=== PATIENT | female | born 1945 | race African-American/Black ===

== ENCOUNTER 2017-06-05 16:22 | Inpatient (IN) | payer MEDICARE, OTHER ==
[~2017-06-05] VITALS: Ht 160 cm; Wt 97.8 kg
[2017-06-05] VITALS (30 sets, daily range): BP systolic 159–188; BP diastolic 66–90; PULSE 71–77; TEMP 97.7–97.9; O2SAT 97–99
[~2017-06-05 16:22] MED LIST: ASPIRIN E.C. 8181 MG PO; CALCIUM 500 + D1 TA1 PO; CELEBREX 200MG200 MG PO; COREG 25MG25 MG/TAB PO; FOSAMAX 35MG35 MG PO; GLUCOPHAGE1000 MG PO; HYZAAR 25 MG-101 TAB PO; JANUVIA50 MG PO; NASONEX SPRAY17 GM NS; NEXIUM 40MG40 MG PO; NORVASC 10MG10 MG PO; PREMARIN VAG42.5 GM VG; SYNTHROID0.05 MG/TA PO; TEKTURNA150 MG PO; TYLENOL 325MG325 MG PO; TYLENOL W/COD1 UDTAB PO; VITAMIN D32000 I1 PO; ZOCOR 40MG40 MG PO
[2017-06-05] MEDS ORDERED: FLEXERIL 1010 MG/TAB PO (16:59)
[2017-06-05] MEDS ORDERED: COZAAR100 MG PO (17:00)
[2017-06-05] MEDS ORDERED: JANUMXR1000-50 PO (17:00)
[2017-06-05] MEDS ORDERED: REFRESH TEARS 330 ML OP (17:01)
[2017-06-06] VITALS (270 sets, daily range): BP systolic 135–186; BP diastolic 48–74; PULSE 61–101; TEMP 97–98.6; O2SAT 96–100
[2017-06-06 06:25] LABS: CALCIUM 10.6 mg/dL (8.4-10.2); CREATININE, serum 0.46 mg/dL (0.52-1.25); POTASSIUM 4.1 mmol/L (3.4-5.0)
[2017-06-07 02:24] VITALS: BP 144/59; PULSE 63; TEMP 98.6
[2017-06-07 07:18] VITALS: BP 151/56; PULSE 72; TEMP 98
[2017-06-07 11:17] VITALS: BP 132/46; PULSE 75; TEMP 98
[2017-06-07] MEDS ORDERED: APRESOLINE 25MG25 MG PO (14:34)
[2017-06-07] MEDS ORDERED: HCTZ 25MG TAB25 MG PO (14:35)
== END 2017-06-07 15:33 | disposition home or self-care (01) | DRG 305 ==
LOC: ICU 16:22 → MEDICAL 16:30
PROVIDERS: Internal Medicine
DX: I16.0 Hypertensive urgency (principal); R07.9 Chest pain, unspecified; I10 Essential (primary) hypertension; E11.9 Type 2 diabetes mellitus without complications
CPT/HCPCS: 99223-AI; 99232-AI; 99239; A9502; J1650; J2785

== ENCOUNTER 2021-07-22 13:12 | Day surgery (SDC) | payer MEDICARE, OTHER ==
[2006-08-23 14:58] VITALS: BP 164/71
[~2021-07-22] VITALS: Ht 160 cm; Wt 88.3 kg
[~2021-07-22 13:12] MED LIST changes: +APRESOLINE 25MG25 MG PO; +COZAAR100 MG PO; +FLEXERIL 1010 MG/TAB PO; +HCTZ 25MG TAB25 MG PO; +JANUMXR1000-50 PO; +REFRESH TEARS 330 ML OP
[2021-07-22 13:50] VITALS: BP 140/60; PULSE 69; TEMP 97.8
[2021-07-22] MEDS ORDERED: APRESOLINE 25MG25 MG PO (14:20)
[2021-07-22] MEDS ORDERED: ZYRTEC 10MG10 MG PO (14:22)
[2021-07-22 15:46] VITALS: BP 170/63; PULSE 72; TEMP 97.1
--- NOTE | 2021-07-22 15:46 | NUR ---
The patient arrived back to [facility] [facility] from the operating room at this time. The patient appears alert and oriented and denies any pain or nausea at this time. The patient agrees to try some orange juice. Post operative vital signs were started at this time. The patient's daughter is at her bedside at this time. Will continue to monitor the patient.
[2021-07-22 16:01] VITALS: BP 171/64; PULSE 71
--- NOTE | 2021-07-22 16:01 | NUR ---
The patient appears to be tolerating the juice well and denies wanting anything further to eat or drink at this time. Vital signs appear stable. Will continue to monitor the patient.
[2021-07-22 16:16] VITALS: BP 168/58; PULSE 59
--- NOTE | 2021-07-22 16:16 | NUR ---
The patient appears to be resting comfortably on the cart at this time. The patient denies any pain or nausea at this time. Call light is within reach. Will continue to monitor the patient.
[2021-07-22 16:31] VITALS: BP 156/64; PULSE 70
--- NOTE | 2021-07-22 16:31 | NUR ---
The patient ambulated to the bathroom with the stand by assistance of one nurse and appeared to tolerate the activity well. The patient voided without difficulty. The patient voided without difficulty.
--- NOTE | 2021-07-22 16:44 | NUR ---
Discharge instructions were reviewed with the patient and her daugther at this time. They both verbalized understanding and have no questions for the nurse at this time. The patient's IV to her left forearm was removed and a pressure dressing was applied to the site. The nurse instructed the patient to get dressed and notify the staff when she is ready to be escorted out.
--- NOTE | 2021-07-22 16:55 | NUR ---
The patient was escorted out via wheelchair to a private vehicle by KATY Dutton. The patient's belongings and discharge papework were sent with her. The patient's daughter is present to drive her home.
== END 2021-07-22 16:55 | disposition home or self-care (01) ==
LOC: SDCO 13:12
DX: N20.0 Calculus of kidney (principal); E11.9 Type 2 diabetes mellitus without complications; I10 Essential (primary) hypertension; E78.00 Pure hypercholesterolemia, unspecified; R01.1 Cardiac murmur, unspecified; G47.33 Obstructive sleep apnea (adult) (pediatric); M19.90 Unspecified osteoarthritis, unspecified site; Z79.2 Long term (current) use of antibiotics; Z79.82 Long term (current) use of aspirin; Z79.84 Long term (current) use of oral hypoglycemic drugs; Z79.1 Long term (current) use of non-steroidal anti-inflammatories (NSAID)
CPT/HCPCS: J0690; J2704; J3010; J7120

== ENCOUNTER 2022-07-29 08:33 | Day surgery (SDC) | payer MEDICARE, OTHER ==
[2006-08-23 14:58] VITALS: BP 164/71
[2022-07-29] VITALS (11 sets, daily range): BP systolic 126–197; BP diastolic 50–79; PULSE 58–68; TEMP 97.9
[~2022-07-29] VITALS: Ht 160.2 cm; Wt 89.4 kg
[~2022-07-29 08:33] MED LIST changes: -COREG 25MG25 MG/TAB PO; +COREG CR80 MG PO; -TYLENOL 325MG325 MG PO; +TYLENOL 8 HR PO; +ZYRTEC 10MG10 MG PO
[2022-07-29 09:37] LABS: HEMATOCRIT 43.4 % (37.0-47.0); HEMOGLOBIN 14.3 g/dl (12.5-16.0); MEAN CELL VOLUME 83 fl (80.0-100.0); MEAN CORPUSCULAR HEMOGLOBIN 27 pg (27-31); MEAN CORPUSCULAR HGB CONC 33 g/dl (33.0-37.0); MEAN PLATELET VOLUME 9.9 fl (7.4-10.4); PLATELET COUNT 290 K/mm3 (130-400); RED BLOOD COUNT 5.21 M/mm3 (4.10-5.30); REDCELL DISTRIBUTION WIDTH-CV 13.4 % (11.5-14.5)
[2022-07-29 09:50] LABS: INR 1.1 (0.8-3.0); PROTHROMBIN TIME 12.3 SECONDS (9.7-12.8)
[2022-07-29 09:52] LABS: PARTIAL THROMBOPLASTIN TIME 31.3 SECONDS (26.0-37.0)
[2022-07-29 09:54] LABS: CALCIUM 11.4 mg/dL (8.4-10.2); CREATININE, serum 0.69 mg/dL (0.57-1.11); POTASSIUM 4.3 mmol/L (3.5-4.5)
[2022-07-29] MEDS ORDERED: LIPITOR 40MG TA40 MG PO (10:14)
[2022-07-29] MEDS ORDERED: FOSAMAX 70MG TA70 MG PO (10:14)
[2022-07-29] MEDS ORDERED: TRIAMCINOLONE A15 GM TP (10:15)
[2022-07-29] MEDS ORDERED: VITAMIN D31000 IU PO (10:16)
--- NOTE | 2022-07-29 10:46 | NUR ---
See merge for all medication, assessment, intervention, and vital sign times.
--- NOTE | 2022-07-29 12:01 | NUR ---
PT back from [facility] after [facility]. pt is sleepy, arousable to voice. vss. tr band to rt wrist, cms intact distal. tele initiated. vss. call light in reach. family in lobby aware pt is back, asked to be notified when pt wakes up.
--- NOTE | 2022-07-29 12:30 | NUR ---
family at bs at this time. Pt is awake and alert, situated in bed with pillows, warm blankets. coffee and water tolerated with no problem. lunch is ordered for patient.
--- NOTE | 2022-07-29 14:05 | NUR ---
bedside report to Jenifer BURNS
--- NOTE | 2022-07-29 14:07 | NUR ---
Report from Fiorella Michaels.
--- NOTE | 2022-07-29 15:10 | NUR ---
All air removed from band in 2-3 ml incriments.No bleeding observed at site.Dressing of gauze and coban applied.
--- NOTE | 2022-07-29 15:27 | NUR ---
Discharge instructions given to pt.Pt verbalizes understanding.Pt escorted out via wheelchair by this nurse.
== END 2022-07-29 15:43 ==
LOC: COL.CAR 08:33
PROVIDERS: Internal Medicine Cardiovascular Disease
DX: I08.3 Combined rheumatic disorders of mitral, aortic and tricuspid valves (principal); G47.33 Obstructive sleep apnea (adult) (pediatric); Z79.82 Long term (current) use of aspirin
CPT/HCPCS: C1769; J1644; J2250; J2370; J2704; J3010; Q9967

== ENCOUNTER 2023-12-20 11:06 | Day surgery (SDC) | payer MEDICARE, OTHER ==
[2006-08-23 14:58] VITALS: BP 164/71
[~2023-12-20] VITALS: Ht 160.1 cm; Wt 88.2 kg
[2023-12-20] VITALS (8 sets, daily range): BP systolic 148–170; BP diastolic 57–83; PULSE 76–85; TEMP 97.6
[~2023-12-20 11:06] MED LIST changes: +ALPHAGAN OPHTH D5 ML OU; +FLOMAX 0.40.4 MG/CAP PO; +FOSAMAX 70MG TA70 MG PO; +LIPITOR 40MG TA40 MG PO; +MOBIC15 MG PO; +PERCOCET 325 MG1 TA2 PO; +TRIAMCINOLONE A15 GM TP; +VITAMIN D31000 IU PO
[2023-12-20] MEDS ORDERED: ALDACTONE50 MG PO (12:49)
[2023-12-20 13:21] LABS: HEMATOCRIT 41.9 % (37.0-47.0); HEMOGLOBIN 13.9 g/dl (12.5-16.0); MEAN CELL VOLUME 84 fl (80.0-100.0); MEAN CORPUSCULAR HEMOGLOBIN 28 pg (27-31); MEAN CORPUSCULAR HGB CONC 33 g/dl (33.0-37.0); MEAN PLATELET VOLUME 9.3 fl (7.4-10.4); PLATELET COUNT 274 K/mm3 (130-400); RED BLOOD COUNT 4.97 M/mm3 (4.10-5.30); REDCELL DISTRIBUTION WIDTH-CV 13.2 % (11.5-14.5)
[2023-12-20 13:29] LABS: INR 1.2 (0.8-3.0); PROTHROMBIN TIME 12.8 SECONDS (9.7-12.8)
[2023-12-20 13:37] LABS: CALCIUM 11.8 mg/dL (8.4-10.2); CREATININE, serum 0.67 mg/dL (0.57-1.11); POTASSIUM 4.2 mmol/L (3.5-4.5)
[2023-12-20] MEDS ORDERED: NS 1,000 ML IV SCH (13:46)
--- NOTE | 2023-12-20 17:16 | NUR ---
Patient had successful ESTRADA today with Dr. Byrd. Post op there were no complications with blood pressure and or oxygen demands. IV was removed. Patient was wheeled to POV with friend Vivi. All questions were answered, concerns were addressed.
== END 2023-12-20 16:54 | disposition home or self-care (01) ==
LOC: COL.CAR 11:06
PROVIDERS: Internal Medicine Cardiovascular Disease
DX: I35.0 Nonrheumatic aortic (valve) stenosis (principal); G47.33 Obstructive sleep apnea (adult) (pediatric)
CPT/HCPCS: J2704; J7030